=== PATIENT | male | born 1980 | race Caucasian/White ===

== ENCOUNTER 2022-02-23 17:53 | Emergency (ER) | payer BC, SELFPAY ==
[2022-02-23 17:55] VITALS: BP 153/95; PULSE 105; RESP 17; TEMP 37.6; O2SAT 98; BMI 33.3
[2022-02-23 17:59] VITALS: BP 153/95; PULSE 105; RESP 17; TEMP 37.6; O2SAT 98
[2022-02-23 18:36] VITALS: BP 91/60; PULSE 60; RESP 16
[2022-02-23 19:41] LABS: Absolute Lymphocyte Count 1.38 X10^3/uL (0.83-4.51); Absolute Neutrophil Count 14.5 X10^3/uL (2.0-7.7); Basophil# 0.04 X10^3/uL; Basophil% 0.2 % (0-1); Eosinophil# 0.03 X10^3/uL; Eosinophils% 0.2 % (0-5); Hematocrit 41.6 % (40-54); Hemoglobin 14.5 g/dL (13.0-16.5); Lymphocyte # 1.38 X10^3/ul (0.83-4.51); Mean Corp Hgb Conc 34.9 g/dL (32-36); Mean Corpuscular Hgb 30.1 pg (27.0-32.0); Mean Corpuscular Volume 86.3 fL (80-94); Mean Platelet Vol. 8.6 fl (6.2-12.0); Monocyte# 1.16 X10^3/uL; Monocyte% 6.8 % (0-10); NRBC Flagged by Analyzer 0 % (0-5); Neutrophil # 14.45 X10^3/uL (2.7-7.7); Neutrophil % 84.1 % (47-70); Platelet Count 265 K/mm3 (150-450); RBC Distribution Width CV 12.9 % (11.6-14.6); RBC Distribution Width SD 40.9 fl (35.1-43.9); Red Blood Count 4.82 M/mm3 (4.6-6.2); White Blood Count 17.2 K/mm3 (4.4-11.0)
[2022-02-23 19:59] LABS: ALB/GLOB Ratio 0.7 RATIO (0.9-2.4); AST(SGOT) 43 U/L (15-37); Alanine Aminotransfer ALT/SGPT 122 U/L (16-61); Albumin, Serum 3.4 g/dL (3.2-5.0); Alkaline Phosphatase 224 U/L (45-117); Anion Gap 9 (5-15); BUN 9 mg/dL (7-18); BUN/Creat Ratio 9.2 RATIO (10-20); Calcium,Total 9.4 mg/dL (8.5-10.1); Chloride 105 mmol/L (98-107); Creatinine, Serum 0.97 mg/dL (0.70-1.30); EST Glomerular Filtration Rate 90 mL/min (>60); Est Glom Filt Rate - Afr Amer 109 mL/min (>60); Estimated Creatinine Clearance 83.92 ml/min; Globulin 4.6 g/dL (2.2-4.2); Glucose 110 mg/dL (74-106); Potassium 3.2 mmol/L (3.5-5.1); Sodium Level 139 mmol/L (136-145)
[2022-02-23 20:06] VITALS: RESP 18
[2022-02-23 20:12] LABS: Lactic Acid 0.8 mmol/L (0.4-1.9)
[2022-02-23] MEDS: Lidocaine 1% (20 ml mdv) 20 ML Vial INFILT (20:30)
[2022-02-23] MEDS: Clindamycin 900 MG/50 ML BAG 75 MG IV (20:30)
--- NOTE | 2022-02-23 20:52 | EDS_ITS ---
HPI History of Present Illness Chief Complaint: Cellulitis Informant: patient Onset/Context/Timing Onset: Weeks (1) Context: Gradual Onset Timing: Continuous Quality: Tightness, burning Location: Neck Worsened by: Nothing Relieved by: Ibuprofen Narrative Narrative: Patient presents with abscess to the back of his neck that has been getting progressively worse over the past week. Patient states that he had a temperature today of 101.3. Patient states the abscess has been draining for the past couple days. Patient describes his pain as tightness and burning. Patient states it is over the posterior aspect of the neck. Patient states it gets better with Tylenol. Patient states nothing makes it worse. Patient saw his primary care physician who prescribed him clindamycin for this. Patient states he followed up with his primary care physician today who referred him to the emergency department. [facility] Medical History (Updated 02/23/22 @ 20:[address] Ayo Mora DO) Hypothyroidism Medical History no medical history Home Medications cholecalciferol (vitamin D3) 50 mcg (2,000 unit) capsule (Vitamin D3) 50 mcg PO DAILY 02/23/22 [History Last Taken Unknown] levothyroxine 100 mcg tablet (Synthroid) 100 mcg PO DAILY 02/23/22 [History Last Taken Unknown] topiramate 25 mg sprinkle capsule 25 mg PO DAILY 02/23/22 [History Last Taken Unknown] Allergy/AdvReac Type Severity Reaction Status Date / Time Penicillins Allergy Hives Verified 02/23/22 17:54 Surgical History (Updated 02/23/22 @ 20:[address] Ayo Mora DO) Hx of appendectomy Social History Smoking Status: Never smoker ROS ROS ED Constitutional Constitutional ED: Reports fever(s); Denies chills Eyes Eyes: Denies blurry vision or change in vision ENT ENT ED: Denies rhinorrhea or sore throat Cardiovascular Cardiovascular: Denies chest pain or palpitations Respiratory/Chest Respiratory/Chest: Denies cough or dyspnea Gastrointestinal Gastrointestinal: Denies nausea or vomiting Genitourinary Genitourinary ED: Denies dysuria or hematuria Musculoskeletal Musculoskeletal: Reports neck pain; Denies back pain Integumentary Reports abscess; Denies rash Neurologic Neurologic: Denies headache(s) or weakness Allergic/Immunologic Allergic/Immunologic ED: Denies mouth swelling or urticaria EXAM Physical Exam Const Vital Signs: 02/23/22 17:55 02/23/22 17:59 02/23/22 18:36 Temperature 99.6 F H 99.6 F H Temperature Source Temporal Temporal Pulse Rate 105 H 105 H 60 Respiratory Rate 17 17 16 Blood Pressure 153/95 H 153/95 H 91/60 Blood Pressure Mean 114 114 70 Pulse Ox 98 98 Oxygen Delivery Method Room Air Room Air 02/23/22 20:06 Temperature Temperature Source Pulse Rate Respiratory Rate 18 Blood Pressure Blood Pressure Mean Pulse Ox Oxygen Delivery Method Positive well nourished and well developed General Appearance ED: well developed and NAD HEENT Reports moist mucous membranes Neck supple and no JVD Extremity normal to inspection General Extremety ED: Negative for edema or tenderness General Extremity: Negative for edema Neuro oriented x3, CN's II-XII intact bilaterally and no sensory deficits noted Sensorium / Orientation: alert Motor Exam: strength 5/5 throughout Psych mental status grossly normal Skin Skin Narrative: There is edema, erythema, and induration over the posterior aspect of the neck. There is minimal fluctuance. There is some purulent drainage noted. There is good range of motion of the cervical spine. MDM MDM MDM Narrative Medical decision making narrative: Patient was given a dose of IV clindamycin here. CBC shows a leukocytosis of 17.2. Comprehensive metabolic profile shows a mild hypokalemia of 3.2. Lactate was normal. Patient was agreeable to have the area opened and further. Patient was given the opportunity ask questions. He had no further questions. The area was anesthetized 1% plain lidocaine locally. The area was opened with an 11 blade scalpel. A cruciate incision was made. There is mild to moderate amount of purulent drainage expressed. Loculations were broken up. There is some tenderness and fluctuance inferior to the area that has been draining. Because of this, this area was anesthetized 1% lidocaine locally. Another cruciate in cision was made over this area. There is no purulent drainage expressed. The area was probed. Loculations were broken up. Bacitracin dressings were applied. Patient tolerated procedure well. Patient was instructed to continue his clindamycin as previously prescribed. Patient was instructed to follow-up with his primary care physician in 3 to 5 days. Patient understood and was agreeable with the plan. All questions were answered. Lab Data Attestation: I reviewed the patient's lab results. Labs: Laboratory Results - last 24 hr 02/23/22 02/23/22 02/23/22 18:20 18:20 19:40 WBC 17.2 H RBC 4.82 Hgb 14.5 Hct 41.6 MCV 86.3 MCH 30.1 MCHC 34.9 RDW Std Deviation 40.9 RDW Coeff of Brant 12.9 Plt Count 265 MPV 8.6 Immature Gran % (Auto) 0.700 Neut % (Auto) 84.1 H Lymph % (Auto) 8.0 L [place] % (Auto) 6.8 Eos % (Auto) 0.2 Baso % (Auto) 0.2 Absolute Neuts (auto) 14.5 H Absolute Lymphs (auto) 1.38 Nucleated RBC % 0 Sodium 139 Potassium 3.2 L Chloride 105 Carbon Dioxide 25.0 Anion Gap 9 BUN 9 Creatinine 0.97 Estim Creat Clear Calc 83.92 Est GFR (MDRD) Af Amer 109 Est GFR (MDRD) Non-Af 90 BUN/Creatinine Ratio 9.2 L Glucose 110 H Lactic Acid 0.8 Calcium 9.4 Total Bilirubin 0.90 AST 43 H ALT 122 H Alkaline Phosphatase 224 H Total Protein 8.0 Albumin 3.4 Globulin 4.6 H Albumin/Globulin Ratio 0.7 L Discharge Plan Triage Chief Complaint: Cellulitis ED Provider: Ayo Mora Dx/Rx/DC Orders Clinical Impression: Abscess of skin of neck, Leukocytosis Instructions: ED Abscess Incision And Drainage Prescriptions: No Action levothyroxine [Synthroid] 100 mcg Tablet 100 mcg PO DAILY cholecalciferol (vitamin D3) [Vitamin D3] 50 mcg (2,000 unit) Capsule 50 mcg PO DAILY topiramate 25 mg Capsule, Sprinkle 25 mg PO DAILY Primary Care Provider: Faizan Dexter Referrals: Faizan Dexter DO [Primary Care Provider] - 3-5 Days Disposition Disposition: Home, Self Care
[2022-02-23 21:31] VITALS: BP 141/90; PULSE 94; RESP 18; O2SAT 96
== END 2022-02-23 21:31 | disposition home or self-care (01) ==
PROVIDERS: Emergency Provider Emergency Medicine; PCP Student in an Organized Health Care Education/Training Program; Visit Provider Emergency Medicine
DX: L02.11 Cutaneous abscess of neck (principal); D72.829 Elevated white blood cell count, unspecified; E03.9 Hypothyroidism, unspecified; Z79.899 Other long term (current) drug therapy
CPT/HCPCS: 10060; 80053; 83605; 85025; 87040; 96365; 99283; J7050; A4216

== ENCOUNTER → 2022-02-26 | Outpatient (CLI) | payer BC, SELFPAY ==
[2022-02-26 08:13] LABS: Absolute Lymphocyte Count 2.14 X10^3/uL (0.83-4.51); Absolute Neutrophil Count 8.6 X10^3/uL (2.0-7.7); Basophil# 0.07 X10^3/uL; Basophil% 0.6 % (0-1); Eosinophils% 0.8 % (0-5); Hematocrit 39.6 % (40-54); Hemoglobin 13.4 g/dL (13.0-16.5); Lymphocyte # 2.14 X10^3/ul (0.83-4.51); Lymphocyte % 17.9 % (19-41); Mean Corp Hgb Conc 33.8 g/dL (32-36); Mean Corpuscular Hgb 30.2 pg (27.0-32.0); Mean Corpuscular Volume 89.4 fL (80-94); Mean Platelet Vol. 7.9 fl (6.2-12.0); Monocyte# 0.76 X10^3/uL; Monocyte% 6.4 % (0-10); NRBC Flagged by Analyzer 0 % (0-5); Neutrophil # 8.64 X10^3/uL (2.7-7.7); Neutrophil % 72.3 % (47-70); Platelet Count 279 K/mm3 (150-450); RBC Distribution Width CV 13.2 % (11.6-14.6); RBC Distribution Width SD 43.5 fl (35.1-43.9); Red Blood Count 4.43 M/mm3 (4.6-6.2)
[2022-02-26 08:28] LABS: Potassium 3.7 mmol/L (3.5-5.1)
== END | disposition home or self-care (01) ==
LOC: LAB 07:53
PROVIDERS: PCP Student in an Organized Health Care Education/Training Program; Referring Provider Family Medicine; Visit Provider Family Medicine
DX: D72.829 Elevated white blood cell count, unspecified (principal); E87.6 Hypokalemia
CPT/HCPCS: 36415; 84132; 85025

== ENCOUNTER 2023-04-06 17:18 | Emergency (ER) | payer BC, SELFPAY ==
[2023-04-06 17:20] VITALS: BP 162/106; PULSE 80; RESP 18; TEMP 36.6; O2SAT 98; BMI 33.1
--- NOTE | 2023-04-06 17:56 | CT_ITS ---
INDICATION: thunderclap headache EXAMINATION: CT BRAIN WITH CONTRAST TECHNIQUE: Noncontrast axial images were obtained of the brain. Subsequently, routine carotid CT angiogram protocol was performed without and with IV contrast. In addition, images were obtained of the [place]. NASCET criteria using the distal ICAs for comparison were used for evaluation of stenoses. 3D reconstructions were reviewed. A radiation dose optimization technique was used for this scan. IV Contrast dosage and agent: None. COMPARISON: None. FINDINGS: --CT BRAIN: BRAIN PARENCHYMA: No intra- or extra-axial hemorrhage. No evidence of acute infarct. No intracranial mass or mass effect. Posterior fossa structures are unremarkable. CSF SPACES: Appropriate for age. No hydrocephalus. Basal cisterns are patent. CALVARIUM, SKULL BASE, PARANASAL SINUSES AND MASTOID AIR CELLS: Clear. No discrete lytic or blastic abnormalities. --CTA NECK: AORTIC ARCH AND BRANCHES: Normal anatomy, patent. RIGHT CCA: No occlusion, significant stenosis or dissection. RIGHT ICA: No occlusion, significant stenosis or dissection. LEFT CCA: No occlusion, significant stenosis or dissection. LEFT ICA: No occlusion, significant stenosis or dissection. RIGHT VERTEBRAL ARTERY: No occlusion, significant stenosis or dissection. LEFT VERTEBRAL ARTERY: No occlusion, significant stenosis or dissection. NECK SOFT TISSUES: Unremarkable. --CTA HEAD: --Anterior circulation: ICAs: No significant stenosis at the intracranial/visualized segments. ACAs: No significant stenosis at the visualized segments. ACOM: Present. MCAs: No significant stenosis at the visualized segments. --Posterior circulation: PCOMs: Patent on the right. paint stockman: No significant stenosis at the visualized segments. BASILAR ARTERY: No significant stenosis. VERTEBRAL ARTERIES: No significant stenosis at the intradural/visualized segments. No evidence of intracranial aneurysm or vascular malformation. CT/CTA Head AND Neck W/ Contrast IMPRESSION: Negative CT Brain, CTA Carotid, and CTA Brain. Electronically Signed: Guzman Campo MD at 19:23 EDT ,
--- NOTE | 2023-04-06 17:57 | EX.ED.VIS.HA ---
HPI History of Present Illness Chief Complaint: Headache Informant: patient Narrative Narrative: Patient is a 42-year-old male with history of hypothyroid presenting for worsening headaches over the past week. Patient states prior to the past week he has never had a headache. He notes that he has had postcoital headaches for the past week. He states that the second he finishes he will get sudden onset of a headache. He states its maximum intensity at that time. He states that has usually lasted no more than an hour however since last night he has had a constant headache into today. He is taken 2 doses of 800 mg ibuprofen with no relief. States the pain is mostly behind his left eye radiates down to his nose and every once while to his neck. Denies any nausea, vomiting, fever, chills, hearing changes, tinnitus or other complaints. Has no family history of any aneurysms or brain issues. Denies any recent medication changes. Denies any recent head trauma or injury. Spoke with his PCP who was concerned about a possible subarachnoid hemorrhage and sent him to the ER. No other complaints or concerns at this time. Patient does note that the left side of his face feels a little warmer than the right side. [facility] Medical History Hypothyroidism Home Medications cholecalciferol (vitamin D3) 50 mcg (2,000 unit) capsule (Vitamin D3) 50 mcg PO DAILY 02/23/22 [History Last Taken Unknown] hydrocodone-acetaminophen 5-325mg 5mg-325mg 1 tab PO Q6H PRN PRN Pain 3 days #10 TABLETS 02/23/22 [Rx Last Taken Unknown] levothyroxine 100 mcg tablet (Synthroid) 100 mcg PO DAILY 02/23/22 [History Last Taken Unknown] topiramate 25 mg sprinkle capsule 25 mg PO DAILY 02/23/22 [History Last Taken Unknown] Allergy/AdvReac Type Severity Reaction Status Date / Time Penicillins Allergy Hives Verified 04/06/23 17:22 Surgical History Hx of appendectomy Social History Smoking Status: Never smoker ROS ROS ED Constitutional Constitutional ED: Denies chills or fever(s) Eyes Eyes: Denies blurry vision, change in vision or diplopia ENT ENT ED: Denies ear pain, rhinorrhea or sore throat Cardiovascular Cardiovascular: Denies chest pain or palpitations Respiratory/Chest Respiratory/Chest: Denies cough Gastrointestinal Gastrointestinal: Denies nausea or vomiting Musculoskeletal Musculoskeletal: Denies arthralgias or myalgias Integumentary Denies rash Neurologic Neurologic: Reports headache(s); Denies paresthesias or weakness Hematologic/Lymphatic Hematologic/Lymphatic: Denies easy bleeding or easy bruising EXAM Physical Exam Const Vital Signs: 04/06/23 17:20 Temperature 98 F Temperature Source Temporal Pulse Rate 80 Respiratory Rate 18 Blood Pressure 162/106 H Blood Pressure Mean 124 Pulse Ox 98 Oxygen Delivery Method Room Air Positive well nourished and well developed General Appearance ED: well developed and NAD HEENT Reports normocephalic, TM's clear and moist mucous membranes atraumatic; Negative for trauma or vesicular rash Face and Sinus: Negative for sinus tenderness Tympanic Membrane ED: Yes TM's clear Eyes PERRL and EOMs intact bilaterally Neck supple, no meningeal signs and no JVD Resp normal respiratory effort and clear to auscultation bilaterally Cardio regular rate, regular rhythm and no murmurs GI non-tender and non-distended Back/Spine Cervical Spine: Negative for cervical spine tenderness Extremity normal to inspection and full ROM General Extremety ED: Negative for edema General Extremity: Negative for edema Neuro oriented x3, CN's II-XII intact bilaterally and no sensory deficits noted Neuro Narrative: Normal coordination Sensorium / Orientation: awake and alert Speech: speech normal Gait (Neuro): normal gait Sensory Exam: No sensory level loss detected Psych mental status grossly normal Skin Skin Narrative: Mild plethora of the face, left more pronounced than right MDM MDM MDM Narrative Medical decision making narrative: Patient evaluated for headache. He has been having new onset of intermittent headaches for the past week that are related with cordis. He does describe them as thunderclap headaches. He has a normal neurologic exam. Does not have any meningeal signs. Will obtain CT of the brain as well as CTA head and neck for further evaluation. In the meantime patient is given IV fluids, Reglan and Benadryl. Will refrain from using Toradol or other NSAIDs until CT has resulted. CT of the head does not show any acute process. CRP is mildly elevated 11.8 which is nonspecific. Patient does not have any pain on palpation of his temporal region I do not think this is temporal arteritis (is to be very unusual at his age as well). He does have a mild elevation of his creatinine to 1.31. Possibly a component of dehydration worsening his symptoms. He is given Toradol after CT came back negative for any acute process. On repeat evaluation he states he is feeling better. Counseled increase his fluid intake. I did touch base with on-call PCP, Dr. Kennedy, relayed results and that I will refer for neurology. Patient was offered LP for definitive diagnosis of xanthochromia however declined. Given his normal neurologic exam improving symptoms and otherwise normal work-up I think that is reasonable. Given return precautions. Discharged home in stable and improved condition. Patient's at the bedside as well as agreeable this plan of care. Lab Data Attestation: I reviewed the patient's lab results. Labs: Laboratory Results - last 24 hr 04/06/23 18:15 WBC 8.0 RBC 5.03 Hgb 14.9 Hct 43.5 MCV 86.5 MCH 29.6 MCHC 34.3 RDW Std Deviation 39.3 RDW Coeff of Brant 12.5 Plt Count 200 MPV 8.7 Immature Gran % (Auto) 0.300 Neut % (Auto) 64.5 Lymph % (Auto) 25.1 [place] % (Auto) 8.1 Eos % (Auto) 1.6 Baso % (Auto) 0.4 Absolute Neuts (auto) 5.2 Absolute Lymphs (auto) 2.00 Nucleated RBC % 0 Sodium 138 Potassium 4.0 Chloride 107 Carbon Dioxide 27.0 Anion Gap 4 L BUN 15 Creatinine 1.31 H Estim Creat Clear Calc 63.90 Est GFR (MDRD) Af Amer 77 Est GFR (MDRD) Non-Af 64 BUN/Creatinine Ratio 11.5 Glucose 110 H Calcium 8.6 C-React Prot Ext Range 11.80 H Radiography Diagnostic Testing: Clinical Impression(s) from Imaging Studies Head/Neck CTA 04/06/23 17:56 IMPRESSION: Negative CT Brain, CTA Carotid, and CTA Brain. Electronically Signed: Guzman Campo MD at 19:23 EDT Reading Location ID and State: [facility], [facility] / [place] Tel , Service support , Management Discussion w/another healthcare provider: PCP Discharge Plan Triage Chief Complaint: Headache ED Provider: Melonie Corral Dx/Rx/DC Orders Clinical Impression: Creatinine elevation, Headache Instructions: ED Headache Unspecified Prescriptions: No Action levothyroxine [Synthroid] 100 mcg Tablet 100 mcg PO DAILY cholecalciferol (vitamin D3) [Vitamin D3] 50 mcg (2,000 unit) Capsule 50 mcg PO DAILY topiramate 25 mg Capsule, Sprinkle 25 mg PO DAILY hydrocodone-acetaminophen [hydrocodone-acetaminophen] 5-325 mg tablet 1 tab PO Q6H PRN PRN (Reason: Pain) 3 Days Qty: 10 0RF Primary Care Provider: Faizan Dexter Referrals: Faizan Dexter DO [Primary Care Provider] - Eliel Bowens MD [Non-Staff -Ordering Privileges] - As soon as possible Activity Restrictions/Additional Instructions: Your imaging was normal with no signs of aneurysm or bleeding around your brain. There is no sign of any mass in your brain with this imaging. Further imaging can be performed which is more sensitive for subtle things however from an emergency standpoint everything was very reassuring. Your creatinine which is a marker of your kidney function and possibly dehydration was slightly elevated. Please try to increase your fluid intake as well. You been given a referral for neurology for follow-up. Please follow-up as well with your family doctor. If your headaches worsen, you develop any neurologic symptoms or have further concerns please return immediately to the emergency room. Disposition Disposition: Home, Self Care
[2023-04-06] MEDS: DiphenhydrAMINE 50 MG/ML Syringe 25 MG IV (18:24)
[2023-04-06] MEDS: Metoclopramide 10 MG/2 ML Vial 5 MG IV (18:24)
[2023-04-06] MEDS: 0.9% Normal Saline (1000mL) 1,000 ML 1000 ML IV (18:24)
[2023-04-06 18:29] LABS: Absolute Neutrophil Count 5.2 X10^3/uL (2.0-7.7); Basophil# 0.03 X10^3/uL; Basophil% 0.4 % (0-1); Eosinophil# 0.13 X10^3/uL; Eosinophils% 1.6 % (0-5); Hematocrit 43.5 % (40-54); Hemoglobin 14.9 g/dL (13.0-16.5); Lymphocyte % 25.1 % (19-41); Mean Corp Hgb Conc 34.3 g/dL (32-36); Mean Corpuscular Hgb 29.6 pg (27.0-32.0); Mean Corpuscular Volume 86.5 fL (80-94); Mean Platelet Vol. 8.7 fl (6.2-12.0); Monocyte# 0.65 X10^3/uL; Monocyte% 8.1 % (0-10); NRBC Flagged by Analyzer 0 % (0-5); Neutrophil # 5.15 X10^3/uL (2.7-7.7); Neutrophil % 64.5 % (47-70); Platelet Count 200 K/mm3 (150-450); RBC Distribution Width CV 12.5 % (11.6-14.6); RBC Distribution Width SD 39.3 fl (35.1-43.9); Red Blood Count 5.03 M/mm3 (4.6-6.2)
[2023-04-06 18:38] LABS: Anion Gap 4 (5-15); BUN 15 mg/dL (7-18); BUN/Creat Ratio 11.5 RATIO (10-20); Calcium,Total 8.6 mg/dL (8.5-10.1); Chloride 107 mmol/L (98-107); Creatinine, Serum 1.31 mg/dL (0.70-1.30); EST Glomerular Filtration Rate 64 mL/min (>60); Est Glom Filt Rate - Afr Amer 77 mL/min (>60); Glucose 110 mg/dL (74-106); Sodium Level 138 mmol/L (136-145)
[2023-04-06] MEDS: Ketorolac 15 MG/ML Vial IV (20:08)
[2023-04-06 21:12] VITALS: RESP 18
== END 2023-04-06 21:17 | disposition home or self-care (01) ==
PROVIDERS: Emergency Provider Emergency Medicine; PCP Student in an Organized Health Care Education/Training Program; Visit Provider Emergency Medicine
DX: R94.4 Abnormal results of kidney function studies (principal); R51.9 Headache, unspecified
CPT/HCPCS: 70496; 70498; 80048; 85025; 86140; 96361; 96374; 96375; 99283; Q9967; A4216